=== PATIENT | female | born 1955 | race Two or more races ===

== ENCOUNTER 2023-10-30 08:45 | Inpatient (IN) | payer OTHER ==
[~2023-10-30] VITALS: Ht 157.5 cm; Wt 93.4 kg
[2023-11-01 09:43] LABS: URINE APPEARANCE Cloudy; URINE BILIRRUBIN Negative (NEGATIVE); URINE BLOOD Negative; URINE COLOR Yellow; URINE GLUCOSE Negative (NEGATIVE); URINE KETONE 15 (NEGATIVE); URINE LEUKOCYTE Moderate; URINE NITRATE Negative; URINE PROTEIN Negative (NEGATIVE); URINE UROBILINOGEN 0.2 E.U./dl
[2023-11-01 09:45] LABS: HEMATOCRIT 44.3 % (36.0-45.00); HEMOGLOBIN 15.1 g/dL (12.0-15.00); MEAN CELL VOLUME 94.6 fL (80.00-100.00); MEAN CORPUSCULAR HEMOGLOBIN 32.2 pg (27.00-32.0); PLATELET COUNT 243 K/uL (150-450); RED BLOOD COUNT 4.68 M/uL (4.00-6.00); RED CELL DISTRIBUTION WIDTH 15.1 % (11.5-14.5)
[2023-11-01 09:48] LABS: URINE EPITHELIAL CELLS 115.4 uL (0.0-38.8); URINE WBC 243.9 uL (0.0-23.2)
[2023-11-01] MEDS ORDERED: CARDURA8 MG PO (09:56)
[2023-11-01] MEDS ORDERED: NORVASC10 MG PO (09:57)
[2023-11-01 10:03] LABS: INR 0.98; PARTIAL THROMBOPLASTIN TIME 30.2 SECONDS (22.0-34.0); PROTHROMBIN TIME 10.3 SECONDS (9.0-11.5)
[2023-11-01 10:25] LABS: URINE RBC 1.8 uL (0.0-20.8)
[2023-11-01 10:36] LABS: ALBUMIN 4.1 gm/dL (3.4-5.0); BILIRUBIN TOTAL 0.78 mg/dL (0.3-1.2); CALCIUM 9.2 mg/dL (8.5-10.1); CREATININE SERUM 0.85 mg/dL (0.55-1.02); GFR 66.12; GLOBULINA 3.4 G/DL (2.4-3.5); POTASSIUM 4.18 mEq/L (3.5-5.1); TOTAL PROTEIN 7.5 gm/dL (6.4-8.2)
[2023-11-29] MEDS ORDERED: CEFOXITIN SODIUM 2,000 MG in 0.9 % SODIUM CHLORIDE 100 ML IV ONE (15:30)
[2023-11-29] MEDS ORDERED: MORPHINE SULFATE 4 MG/ML CARTRIDGE IV SCH (16:17)
[2023-11-29] MEDS ORDERED: CEFOXITIN SODIUM 1,000 MG VIAL IV SCH ×2 (17:00→21:00)
[2023-11-29] MEDS ORDERED: FAMOTIDINE/PF 20 MG/2 ML VIAL IV SCH (21:00)
[2023-11-30] MEDS ORDERED: ACETAMINOPHEN 500 MG GEL..CAP PO SCH (09:00)
[2023-12-01] MEDS ORDERED: AMLODIPINE BESYLATE 10 MG TABLET PO SCH (09:00)
== END 2023-12-02 18:07 | disposition home or self-care (01) | DRG 331 ==
LOC: SURG 11-06 09:45 → O/R 11-29 06:49 → SURG 11-29 09:45 → SURH 11-30 13:55
PROVIDERS: ADMIT Surgery; ATTEND Surgery
PROC: 0DTF4ZZ Resection of Right Large Intestine, Percutaneous Endoscopic Approach (ICD-10-PCS; principal; 2023-11-29 14:15)
DX: K63.5 Polyp of colon (principal); R59.0 Localized enlarged lymph nodes; I10 Essential (primary) hypertension